=== PATIENT | male | born 1955 | race American Indian/Alaskan Native ===

== ENCOUNTER 2020-05-21 06:21 | Day surgery (SDC) | payer MEDICARE ==
[2020-05-21] MEDS ORDERED: SODIUM CHLORIDE 0.9% 1000 ML 1,000 ML ONE (06:36)
[2020-05-21] MEDS ORDERED: SODIUM CHLORIDE 0.9% 1000 ML 1,000 ML IV SCH (07:30)
[2020-05-21 07:54] LABS: Basophils % (Auto) 0.7 % (0.0-1.8); Eosinophils # (Auto) 0.3 K/mm3 (0.0-0.4); Eosinophils % (Auto) 6.1 % (0.0-4.3); Hematocrit 44.8 % (35.5-45.6); Hemoglobin 15.1 gm/dl (11.8-15.2); Lymphocytes # (Auto) 2.5 K/mm3 (1.2-5.4); Lymphocytes % (Auto) 44.7 % (13.4-35.0); Mean Corpuscular HGB Conc 34 % (32-34); Mean Corpuscular Volume 93 fl (84-94); Monocytes # (Auto) 0.5 K/mm3 (0.0-0.8); Monocytes % (Auto) 8.3 % (0.0-7.3); Platelet Count 272 K/mm3 (140-440); Red Blood Count 4.84 M/mm3 (3.65-5.03); Red Cell Distribution Width 14.1 % (13.2-15.2)
[2020-05-21] MEDS ORDERED: SODIUM CHLORIDE 0.9% 500 ML 500 ML IV SCH (08:00)
[2020-05-21] MEDS ORDERED: ASPIRIN EC 325 MG TAB PO ONE (08:00)
[2020-05-21 08:03] LABS: BUN/Creatinine Ratio 11; Blood Urea Nitrogen 13 mg/dL (9-20); Calcium 9.5 mg/dL (8.4-10.2); Hemolysis Index 0; INR 0.93 (0.87-1.13)
[2020-05-21 08:04] LABS: Partial Thromboplastin Time 32.4 Sec. (24.2-36.6)
[2020-05-21] MEDS ORDERED: MIDAZOLAM 2 MG/2 ML INJ ONE (09:27)
[2020-05-21] MEDS ORDERED: fentaNYL 100 MCG/2 ML INJ ONE (09:27)
[2020-05-21] MEDS ORDERED: HEPARIN 10,000 UNITS/10 ML VIAL ONE (09:28)
[2020-05-21] MEDS ORDERED: NITROGLYCERIN SYRINGE 3 ML ONE (09:28)
[2020-05-21] MEDS ORDERED: HEPARIN/NS 5000 UNIT/500ML 1,000 ML IR ONE (09:28)
[2020-05-21] MEDS ORDERED: VERAPAMIL 5 MG/2 ML INJ ONE (09:28)
[2020-05-21] MEDS ORDERED: LIDOCAINE (2%) 20 MG/1 ML VIAL 20 ML MDV INFILTRATI ONE ×2 (09:28→10:15)
[2020-05-21] MEDS ORDERED: fentaNYL 100 MCG/2 ML INJ IV ONE (10:14)
[2020-05-21] MEDS ORDERED: MIDAZOLAM 2 MG/2 ML INJ IV ONE (10:14)
[2020-05-21] MEDS ORDERED: HEPARIN 10,000 UNITS/10 ML VIAL IV ONE (10:16)
[2020-05-21] MEDS ORDERED: NITROGLYCERIN 600 MCG/3 ML SYRINGE UD ONE (10:16)
--- NOTE | 2020-05-21 10:54 | Cardiac Catherization Report ---
REFERRING PHYSICIAN: Dr. Wong. INDICATION FOR PROCEDURE: The patient is a very pleasant 64-year-old -[place] gentleman with multiple risk factors, presents here with other medical history includes hyperlipidemia, chronic kidney disease, hypertension, presents here for cardiac catheterization given abnormal stress test as well as dyspnea. Risks, benefits, alternatives discussed at length prior to obtaining informed consent. It should be noted that he does have stage 3 chronic kidney disease. He was prehydrated before the procedure. Creatinine today is 1.2. I attempted to minimize contrast use as much as reasonably possible. PROCEDURE IN DETAIL: The patient was brought to catheterization lab in a postabsorptive state, prepped and draped in sterile fashion. Rohith's test in right hand was normal. A 2 mL of 2% lidocaine used to anesthetize the right wrist. A standard 6-Nigerian hydrophilic sheath used to cannulate the right radial artery via modified Seldinger technique. All exchanges performed to exchange a J-tip guidewire. JL3.5 catheter used to engage the left main. No dampening or ventricularization. Cineangiography performed in all projections. JR4 catheter was used to cross the aortic valve under fluoroscopic guidance. Left ventriculography performed in 30 WARNER and 30 PIA projections via hand injections, catheter flushed. Manual pullback performed with continuous pressure monitoring. Catheter used to engage the right coronary. No dampening or ventricularization. Cineangiography performed in all projections. Next, catheter removed from the body of wire, sheath removed. Manual pressure used to achieve hemostasis. I directly supervised the administration of moderate sedation with fentanyl and Versed from 8:50 a.m. to 9:30 a.m. No immediate complications identified. DATA: The patient remained in normal sinus rhythm throughout the procedure. Aortic pressure is 140/80, LV pressure is 140, LVEDP of 20 mmHg, left ventriculography reveals normal systolic performance with estimated ejection fraction of 60-65%. No evidence of aortic stenosis. Mildly elevated LVEDP. CORONARY ANATOMY: This is a right dominant system. Right coronary is a large vessel, courses AV groove, distally bifurcates into posterior and posterolateral branches. No discrete stenosis noted. Left main without significant disease, bifurcates left anterior descending and left circumflex. LAD is a moderate sized vessel, courses anterior intergroove, wraps around the apex, no significant disease. Left circumflex, moderate sized vessel, courses AV groove. No significant disease identified. CONCLUSIONS: 1. No angiographic evidence of significant epicardial coronary disease in this right dominant system. 2. Normal left ventricular systolic performance, estimated ejection fraction of 55-60%. 3. No evidence of aortic stenosis. 4. Mildly elevated LVEDP. 5. Systemic arterial hypertension. At this point, we will continue current medications. Follow up with Dr. Wong. The patient is clinically stable. Weight loss, diet and lifestyle modification discussed. Discussed with his significant other via telephone as well. Follow up with Dr. Wong. Standard radial care. Also, we will recheck a creatinine later this week in the office. Followup with Dr. Wong in 2 weeks. [facility]# [id number] FREDO/NTS
--- NOTE | 2020-05-21 11:44 | Short Stay Summary ---
Short Stay Documentation Date of service: 05/21/20 - History H&P: obtained from office - Allergies and Medications Current Medications: Allergies No Known Allergies Allergy (Unverified 05/21/20 07:13) Home Medications Medication Instructions Recorded Confirmed Last Taken Type Ascorbic Acid [Vitamin C] 1,000 mg PO DAILY 05/21/20 05/21/20 05/20/20 History 1000 mg Atorvastatin Calcium [Lipitor] 40 mg PO QHS 05/21/20 05/21/20 05/20/20 History 40 mg Cholecalciferol (Vitamin D3) 5,000 units PO DAILY 05/21/20 05/21/20 05/20/20 History [Vitamin D3] 5000 units Eplerenone [Inspra] 50 mg PO BID 05/21/20 05/21/20 05/20/20 History 50 mg Fenofibrate Nanocrystallized 160 mg PO DAILY 05/21/20 05/21/20 05/20/20 History [Fenofibrate] 160 mg Fish Oil 1,200 mg Softgel 1,200 mg PO DAILY 05/21/20 05/21/20 05/20/20 History 1200 mg Hydrochlorothiazide 25 mg PO DAILY 05/21/20 05/21/20 05/20/20 History 25 mg Metoprolol Xl [Metoprolol 50 mg PO BID 05/21/20 05/21/20 05/20/20 History SUCCINATE ER TAB] 50 mg Quinapril HCl [Accupril] 20 mg PO BID 05/21/20 05/21/20 05/20/20 History 20 mg hydrALAZINE [Apresoline TAB] 100 mg PO BID 05/21/20 05/21/20 05/20/20 History 100 mg Active Medications Sodium Chloride (Nacl 0.9% 500 Ml) 500 mls @ 50 mls/hr IV DIRECT CAROLYN Stop: 05/21/20 17:59 Sodium Chloride (Nacl 0.9% 1000 Ml) 1,000 mls @ 100 mls/hr IV DIRECT CAROLYN Last Admin: 05/21/20 08:38 Dose: 100 mls/hr Documented by: - Brief post op/procedure progress note Date of procedure: 05/21/20 Pre-op diagnosis: HTN, Abnormal Stress Test, Dyspnea Post-op diagnosis: same Procedure: LHC- see dictated cath report. Anesthesia: local Estimated blood loss: none Condition: stable - Disposition Condition at discharge: Good Disposition: [id number] TO HOME OR SELFCARE - Discharge Diagnoses (1) HTN (hypertension) Status: Chronic (2) HLD (hyperlipidemia) Status: Chronic (3) Dyspnea Status: Chronic (4) Normal coronary arteries Status: Acute Short Stay Discharge Plan Activity: advance as tolerated Diet: low fat, low cholesterol, low salt Wound: open to air, keep clean and dry, per your surgeon's advice Follow up with: PHILLIP DUKE MD [Primary Care Provider] - 7 Days CAROLIN WONG MD [Staff Physician] - 7 Days (Follow up with Dr Wong at our [place] office on 06/05/2020 at 2:30PM.)
[2020-05-21 13:37] VITALS: BP 125/61
== END 2020-05-21 06:22 | disposition home or self-care (01) ==
LOC: CATHLABREC 06:21
PROVIDERS: ATTEND Internal Medicine
DX: R94.39 Abnormal result of other cardiovascular function study (principal); R06.09 Other forms of dyspnea; I12.9 Hypertensive chronic kidney disease with stage 1 through stage 4 chronic kidney disease, or unspecified chronic kidney disease; N18.2 Chronic kidney disease, stage 2 (mild); E78.5 Hyperlipidemia, unspecified; G47.30 Sleep apnea, unspecified; E66.9 Obesity, unspecified; F17.210 Nicotine dependence, cigarettes, uncomplicated; M19.90 Unspecified osteoarthritis, unspecified site; Z98.890 Other specified postprocedural states; Z90.49 Acquired absence of other specified parts of digestive tract; Z79.899 Other long term (current) drug therapy; Z82.49 Family history of ischemic heart disease and other diseases of the circulatory system
CPT/HCPCS: 36415; 80048; 85025; 85610; 85730; 93005; 93458; 99156; 99157; C1894; J1644; J2250; J3010; J7030; Q9967